=== PATIENT | female | born 1955 | race Hispanic/Latino ===

== ENCOUNTER 2019-11-27 21:52 | Emergency (ER) | payer OTHER | END 2019-11-27 23:15 | disposition home or self-care (01) | LOC: EDH 21:52 | DX: J10.1 Influenza due to other identified influenza virus with other respiratory manifestations (principal) | CPT/HCPCS: 87804 ==

== ENCOUNTER → 2023-06-30 | Outpatient (CLI) | payer OTHER | END | disposition home or self-care (01) | LOC: RAH 08:19 | PROVIDERS: ATTEND Family Medicine | DX: N13.30 Unspecified hydronephrosis (principal); R14.0 Abdominal distension (gaseous); R10.2 Pelvic and perineal pain | CPT/HCPCS: 76700; 76856 ==